=== PATIENT | female | born 1985 | race Caucasian/White ===

== ENCOUNTER 2019-05-16 17:50 | Emergency (ER) | payer SELFPAY ==
[2019-05-16 17:51] VITALS: BP 122/76; PULSE 83; RESP 16; TEMP 36.9; O2SAT 99; BMI 26.9
--- NOTE | 2019-05-16 17:55 | RAD_ITS ---
STUDY: X-RAY - LEFT KNEE REASON FOR EXAM: Female, 34 years old. Left knee swelling TECHNIQUE: 4 view(s) of the knee. COMPARISON: None. FINDINGS: Normal visualized distal femur. Normal visualized proximal tibia and fibula. Normal proximal tibiofibular articulation. Normal medial femorotibial compartment. Normal lateral femorotibial compartment. Normal patellofemoral articulation. The soft tissue structures are unremarkable. RAD/Knee 4 or More Views IMPRESSION: Normal x-ray examination of the knee. Electronically Signed: Abhilash Gardner DO at 18:18 EST Tel , Service support ,
--- NOTE | 2019-05-16 19:06 | ED.VISSUMM ---
- ER Visit Summary Date of Service: 05/16/19 Chief Complaint: Left knee swelling History of Present Illness: The patient is a 34 F with gradual onset left knee swelling. She never had this before. Nothing seemed to provoke it. Denies pain. Occasionally it pops. No redness, warmth, drainage, wounds. No weakness or numbness. No blood thinners. No other associated symptoms. Physical Examination: Inspection shows mild swelling. No redness. No warmth on palpation. Range of motion intact. No laxity or deformity. She does have crepitus when I palpate her patella. Extension is intact. Test Results: X-rays negative Emergency Department Course and Treatment: X-rays were negative. Patient declined pain medicine. Rest, ice, elevate. There is nothing to suggest septic knee, crystal arthropathy, ligamentous injury. Treatment Plan: Rest, ice, elevate. Lane wrap's. Fwdp-xmx-thyiegy remedies. Return for any new or worsening issues. Disposition: Discharge Impression: 1. Left knee effusion This note was generated with [employer] dictation software. It may contain incorrect words, spelling, and punctuation that were not noted in review of the chart prior to signing ED Disposition - Plan for ED Patient: Referrals: Care Physician,No Primary [Primary Care Provider] -
--- NOTE | 2019-05-16 19:08 | ED.DEP ---
ED Disposition - Plan for ED Patient: Instructions: Knee Effusion Referrals: Ne Storey [NON-STAFF] -
[2019-05-16 19:50] VITALS: BP 115/62; PULSE 68; RESP 16; O2SAT 98
== END 2019-05-16 19:52 | disposition home or self-care (01) ==
PROVIDERS: Emergency Provider Emergency Medicine
DX: M25.462 Effusion, left knee (principal)
CPT/HCPCS: 73564; 99282

== ENCOUNTER 2019-05-25 12:36 | Emergency (ER) | payer SELFPAY ==
[2019-05-25 12:38] VITALS: BP 114/72; PULSE 132; RESP 18; TEMP 36.6; O2SAT 99; BMI 26.7
[2019-05-25 12:51] VITALS: BP 116/76; PULSE 105; RESP 16; O2SAT 95
--- NOTE | 2019-05-25 13:05 | RAD_ITS ---
STUDY: X-RAY CHEST REASON FOR EXAM: Female, 34 years old. Chest pain, nausea TECHNIQUE: Single AP portable view of the chest. COMPARISON: None. FINDINGS: The lungs are clear and expanded. There is no demonstrated pleural abnormality. Normal size heart. Normal mediastinum and vince. Normal visualized pulmonary arteries. Normal visualized aortic arch and descending thoracic aorta. Normal visualized thoracic spine. Normal visualized ribs, clavicles, and shoulders. There is no demonstrated abnormality of the visualized soft tissue structures of the upper abdomen. RAD/Chest 1 View (Portable) IMPRESSION: Normal x-ray examination of the chest. Electronically Signed: Linwood Chao MD at 13:29 EST Tel , Service support ,
--- NOTE | 2019-05-25 13:05 | EKG12_ITS ---
Test Reason : CP Blood Pressure : / mmHG Vent. Rate : 099 BPM Atrial Rate : 099 BPM P-R Int : 134 ms QRS Dur : 086 ms QT Int : 332 ms P-R-T Axes : 068 064 -01 degrees QTc Int : 426 ms Normal sinus rhythm Possible Left atrial enlargement ST & T wave abnormality, consider inferior ischemia Abnormal ECG Confirmed by RENAE DODSON, MALGORZATA ([id number]), editorial director JAIME CHAVEZ ([id number]) on 05/29/2019 9:50:29 AM Referred By: LYNDSAY Confirmed By:TIFFANY MACDONALD MD
--- NOTE | 2019-05-25 13:07 | CT_ITS ---
STUDY: CT ABDOMEN AND PELVIS WITHOUT CONTRAST REASON FOR EXAM: Female, 34 years old. PT STATED N/V X 1 DAY, HX OF GB REMOVED, CSECTION RADIATION DOSAGE (If Supplied By Facility): CTDIvol = ( 9.68 ) mGy, DLP = ( 496.86 ) mGycm TECHNIQUE: Transaxial images were obtained from the dome of the diaphragm to the symphysis pubis without oral contrast, and without intravenous contrast. Sagittal and coronal images were reconstructed. Individualized dose optimization techniques were used for this CT. COMPARISON: None. FINDINGS: The visualized lung bases are unremarkable. Normal liver. No intrahepatic biliary duct dilatation or liver mass. There are surgical clips in the gallbladder fossa consistent with a prior cholecystectomy. Normal spleen. Normal pancreas. Normal bilateral adrenal glands. Normal right kidney. Normal left kidney. No hydronephrosis or renal masses. No visualized radiopaque stones. Normal visualized stomach. Normal small intestine. Normal colon. No bowel dilatation or obstruction. No free air or free fluid. The appendix is visualized and appears normal. Normal abdominal aorta. Normal inferior vena cava. Normal retroperitoneum. Normal urinary bladder. Normal visualized uterus. Normal abdominal wall. Normal osseous structures. CT/Abdomen/Pelvis without Cont IMPRESSION: No demonstrated acute or significant process of the abdomen and pelvis. Electronically Signed: Tyler Miller MD at 14:40 EST , Service support ,
--- NOTE | 2019-05-25 13:09 | ED.DCSUM_ITS ---
History of Present Illness Chief Complaint: Nausea/Vomiting Informant: Patient Onset: Yesterday Current Severity: Mild Narrative: Complains of diffuse stomach cramping associate with vomiting that began yesterday late in the evening after work, she indicates she did start her menstrual cycle at about the same time her cycles are on time she is status post tubal ligation, she takes her hand and drowsiness [place] around her entire abdomen indicating location of pain, she indicates status post cholecystectomy years ago no history of any GI elements, family members have URI symptoms, she is had some loose stools, she has no history of inflammatory bowel disease or other GI ailments Past Medical History - Allergies and Home Meds Allergies/Adverse Reactions: Allergies No Known Allergies Allergy (Verified 05/25/19 12:40) Primary Care Physician: Care Physician,No Primary [Primary Care Provider] - Past Medical History: - - Cholecystectomy Smoking Status: Former smoker Review of Systems General: Denies: Chills, Fever, Sweats Eyes: Denies: Visual changes - bilaterally, Diplopia ENT: Denies: Rhinorrhea, Sore throat Cardiovascular: Denies: Chest pain, Palpitations Respiratory: Denies: Dyspnea, Cough, Dyspnea on exertion Gastrointestinal: Reports: Abdominal pain, Vomiting, Diarrhea. Denies: Nausea, Melena, Hematochezia Genitourinary: Denies: Dysuria, Hematuria, Frequency Musculoskeletal: Denies: Back pain, Extremity Pain Skin: Denies: Rash, Wounds Neurological: Denies: Headache, Weakness, Numbness Physical Exam Vital Signs/Narrative: Vital Signs Temp Pulse Resp BP Pulse Ox 05/25/19 12:51 105 H 16 116/76 95 05/25/19 12:38 98 F 132 H 18 114/72 99 General: Well nourished, Well developed, No Acute Distress Head: Normocephalic, Atraumatic Eyes: Perrl, EOMI ENT: Moist mucous membranes, No rhinorrhea Neck: Supple, Nontender Cardiovascular: Regular rate, Regular rhythm, No murmurs Respiratory: No distress, CTA bilaterally, Chest nontender Abdomen: Soft, Nontender, Nondistended, Normal bowel sounds, - - She has a relatively soft abdomen she it is not distended by her history she has a vague diffuse discomfort most of it appeared to be to the left lower abdomen no rebound guarding organomegaly Back: Nontender, Normal Inspection Extremities: Nontender, No edema Skin: Normal color, No rash Neurological: Alert, Oriented x3, Cranial nerves II-XII grossly intact, Normal Strength, Normal Sensation Psychological: Normal affect, Normal Mood Diagnostic/Tx/Re-eval - Medical Decision Making Given all of the above IV fluid screening labs UA CT Screening work-up and labs UA CBC chemistry hCG negative, CT abdomen pelvis unremarkable, on reevaluation she is drinking water she is feeling much better explained to the exact etiology of the symptoms are unclear at this time she feels well wants to go home and she will follow with outpatient providers return for change in symptoms Home stable Final impression Crampy abdominal pain resolved etiology unclear ED Disposition - Plan for ED Patient: Diagnosis: Abdominal pain Instructions: VOMITING AND DIARRHEA, Nonspecific (Adult) Referrals: Care Physician,No Primary [Primary Care Provider] -
[2019-05-25 13:15] LABS: Absolute Lymphocyte Count 0.39 X10^3/uL (0.83-4.51); Absolute Neutrophil Count 5.6 X10^3/uL (2.0-7.7); Basophil# 0.01 X10^3/uL; Basophil% 0.2 % (0-1); Eosinophils% 1.6 % (0-5); Hematocrit 36.2 % (37-47); Hemoglobin 11.9 g/dL (12.0-15.0); Lymphocyte # 0.39 X10^3/ul (4.0); Lymphocyte % 6.1 % (19-41); Mean Corp Hgb Conc 32.9 g/dL (32-36); Mean Corpuscular Hgb 28.3 pg (27.0-32.0); Mean Corpuscular Volume 86.2 fL (81-99); Mean Platelet Vol. 9.6 fl (6.2-12.0); Monocyte# 0.28 X10^3/uL; Monocyte% 4.4 % (0-10); NRBC Flagged by Analyzer 0 % (0-5); Neutrophil # 5.56 X10^3/uL (2.7-7.7); Neutrophil % 87.2 % (47-70); POSITIVE DIFFERENTIAL YES; POSITIVE MORPHOLOGY YES; Platelet Count 238 K/mm3 (150-450); RBC Distribution Width CV 12.6 % (11.6-14.6); RBC Distribution Width SD 39.4 fl (35.1-43.9); White Blood Count 6.4 K/mm3 (4.4-11.0)
--- NOTE | 2019-05-25 13:23 | NURSING ---
NO OLD EKGS
[2019-05-25 13:24] LABS: Internal QC Validated? YES +Cl - CLEAR BKGD; Pregnancy, Serum, hCG Quali. NEGATIVE Negative
[2019-05-25 13:27] LABS: Differential Indicated SCAN CRITERIA MET
[2019-05-25 13:33] LABS: AST(SGOT) 10 U/L (15-37); Alanine Aminotransfer ALT/SGPT 15 U/L (13-56); Albumin, Serum 3.7 g/dL (3.2-5.0); Alkaline Phosphatase 41 U/L (45-117); Anion Gap 6 (5-15); BUN 10 mg/dL (7-18); BUN/Creat Ratio 12.6 RATIO (10-20); Calcium,Total 8.6 mg/dL (8.5-10.1); Chloride 109 mmol/L (98-107); Creatinine, Serum 0.79 mg/dL (0.55-1.02); EST Glomerular Filtration Rate 89 mL/min (>60); Est Glom Filt Rate - Afr Amer 107 mL/min (>60); Globulin 3.3 g/dL (2.2-4.2); Glucose 108 mg/dL (74-106); Lipase 62 U/L (73-393); Potassium 3.4 mmol/L (3.5-5.1); Sodium Level 138 mmol/L (136-145)
[2019-05-25] MEDS: Aspirin 81 MG TAB.CHEW 324 MG PO (13:34)
[2019-05-25] MEDS: 0.9% Normal Saline 1,000 ML 1000 ML IV (13:35)
[2019-05-25] MEDS: morphine 8 MG/ML Syringe IV (13:35)
[2019-05-25] MEDS: Ondansetron 4 MG/2 ML Vial IV (13:35)
--- NOTE | 2019-05-25 14:27 | ED.RN ---
PT UP TO BR. STATES I MISSED. BACK TO BED AND HOOKED BACK UP TO MONITOR
[2019-05-25 14:37] VITALS: BP 102/54; PULSE 97; RESP 16; O2SAT 98
[2019-05-25 15:16] LABS: Mucous, Urine 0 SEEN /hpf (<or=2+)
[2019-05-25 15:19] LABS: Color, Urine Yellow (Yellow); Glucose, Dipstick Normal (Normal); Ketone-Dipstick 15 mg/dl (Negative); Leukocyte Esterase-Dipstick 25 /ul (Negative); Nitrite-Dipstick Negative (Negative); Occult Blood-Urine 250 /ul (Negative); Protein-Dipstick Negative (Negative); Urine Bilirubin Dipstick Negative (Negative); Urine Clarity Sl. Cloudy (Clear); Urine Urobilinogen 1 mg/dl (Normal)
[2019-05-25 15:35] LABS: Bacteria 1+ /hpf (None Seen); Red Blood Cells-Urine 50-100 SEEN /hpf (0-5); Squamous Epithelial Cells - UA 0-5 SEEN /hpf (5-10); White Blood Cells 0-5 SEEN /hpf (0-5)
[2019-05-25 16:00] VITALS: BP 98/65; PULSE 89; RESP 16; O2SAT 98
[2019-05-25 16:56] VITALS: BP 98/65; PULSE 104; RESP 21; O2SAT 95
== END 2019-05-25 16:58 | disposition home or self-care (01) ==
LOC: ED 13:18
PROVIDERS: Emergency Provider Emergency Medicine
DX: R10.9 Unspecified abdominal pain (principal); R11.2 Nausea with vomiting, unspecified; Z87.891 Personal history of nicotine dependence; Z98.51 Tubal ligation status; Z90.49 Acquired absence of other specified parts of digestive tract
CPT/HCPCS: 71045; 74176; 80048; 80076; 81001; 83690; 84484; 84703; 85025; 93005; 96361; 96374; 96375; 99285; J7030; A4216; J2405

== ENCOUNTER 2019-09-21 21:01 | Emergency (ER) | payer OTHER, SELFPAY ==
[2019-09-21 21:02] VITALS: BP 114/73; PULSE 60; RESP 14; TEMP 37; O2SAT 100; BMI 29.0
--- NOTE | 2019-09-21 21:55 | ED.VISSUMM ---
- ER Visit Summary Date of Service: 09/21/19 Chief Complaint: Dog bite History of Present Illness: The patient is a 34 F who presents with a dog bite to her left foot that occurred today. Patient states she was bitten by her own dog. Patient states she was playing with her dog when she fell backwards. Patient states that the dog bit her on her left foot after she fell backwards. Patient states her last tetanus was within 10 years. Patient denies any paresthesias or weakness. Patient describes her pain as throbbing. Patient states the dog's immunizations are up-to-date. Physical Examination: Vital signs are stable. Patient is afebrile. Patient is in no acute distress. Skin is warm and dry. There are 2 puncture wounds over the dorsal aspect of the left foot with ecchymosis in the area over the third and fourth metatarsals. There are also puncture wounds on the distal phalanx of the great toe. There is full range of motion. Sensation was intact light touch in all digits. Capillary refill was less than 2 seconds in all digits. Pedal pulses are equal bilaterally. Test Results: X-rays of the left foot were obtained. There is no acute fracture. This was interpreted by the radiologist and reviewed by myself Emergency Department Course and Treatment: The wound was cleaned and dressed with bacitracin dressing. Patient was instructed to keep the wound clean and dry. Patient was given a prescription for Augmentin. Patient was instructed to follow-up with her primary care physician in 5 to 7 days. Patient understood and was agreeable with the plan. All questions were answered. Disposition: Discharge home Impression: Dog bite left foot This note was generated with [employer] dictation software. It may contain incorrect words, spelling, and punctuation that were not noted in review of the chart prior to signing ED Disposition - Plan for ED Patient: Disposition: Home or Assisted Living Diagnosis: Dog bite of left foot Instructions: ED BITE Dog Prescriptions: Amox/Clavulanate Tablet [Augmentin Tablet] 875 mg PO Q12H #20 tab Prescription Printed Referrals: NOT,DEFINED [NON-STAFF] - 5-7 Days
[2019-09-21] MEDS: Amox/Clavulanate 875 MG Tablet PO (22:07)
--- NOTE | 2019-09-21 22:08 | RAD_ITS ---
STUDY: X-RAY - LEFT FOOT CLINICAL: Female, 34 years old. dog bite to foot TECHNIQUE: 3 view(s) of the foot. COMPARISON: None. FINDINGS: Normal talus, calcaneus, and tarsal bones. Normal visualized subtalar, talonavicular, calcaneocuboid, tarsal and tarsometatarsal articulations. Normal metatarsi. Normal metatarsophalangeal joint of the great toe. Normal tibial and fibular sesamoid bones. Normal interphalangeal joint of the great toe. Normal phalanges of the great toe. Normal second through fifth metatarsophalangeal joints. Normal interphalangeal joints and phalanges of the lesser toes. The soft tissue structures are unremarkable. RAD/Foot min 3 Views IMPRESSION: Normal x-ray examination of the foot. Electronically Signed: Paulo Lopez MD at 22:20 EDT , Service support ,
== END 2019-09-21 22:58 | disposition home or self-care (01) ==
LOC: ED 22:20
PROVIDERS: Emergency Provider Emergency Medicine
DX: S91.332A Puncture wound without foreign body, left foot, initial encounter (principal); W54.0XXA Bitten by dog, initial encounter; Y93.89 Activity, other specified; Y99.9 Unspecified external cause status; F17.290 Nicotine dependence, other tobacco product, uncomplicated
CPT/HCPCS: 73630; 99283

== ENCOUNTER 2023-03-27 07:18 | Emergency (ER) | payer SELFPAY ==
[2023-03-27 07:19] VITALS: BP 134/78; PULSE 64; RESP 14; TEMP 36.4; O2SAT 98; BMI 31.4
--- NOTE | 2023-03-27 07:36 | ED.VIS.LOWEX ---
HPI History of Present Illness Chief Complaint: Lower Extremity Injury Narrative Narrative: 37-year-old female who denies significant past medical history presents with pain in her right forefoot that she has had for approximately 2 weeks. She relates history that she noticed some bruising on the top of her right foot but cannot recall any significant trauma. She states may be she had an animal stepped on the top of her foot. Subsequently, she was at a wedding and was dancing, and noticed pain in her right foot and a mild amount of swelling so she elevated her feet. Over the last 1 to 2 days, she was walking and felt a pop in her forefoot and now noticed swelling on the top/dorsum of her right foot. Pain is worse with weightbearing and relieved by nothing. She states that the pain is bearable however, but she has had this problem with swelling and mild pain for approximately 2 weeks. She denies any other symptoms. No significant past medical history. PFSH PFSH Home Medications NK 05/16/19 [History Last Taken Unknown] amoxicillin 875 mg-potassium clavulanate 125 mg tablet 875 mg (0.875 x 875-125 mg) PO Q12H #20 tabs 09/21/19 [Rx Last Taken Unknown] Allergy/AdvReac Type Severity Reaction Status Date / Time No Known Allergies Allergy Verified 03/27/23 07:19 Social History Smoking Status: Current every day smoker ROS ROS ED ROS Narrative Constitutional: No fever, no chills. HEENT: No sore throat. No neck pain. No loss of vision. No rhinorrhea. Cardiovascular: No chest pain. No palpitations. No pedal edema. Respiratory: No cough, no shortness of breath. Abdominal: No abdominal pain. No nausea. No vomiting. Genitourinary: No dysuria. No hematuria. Musculoskeletal: No myalgias. Right foot pain, more forefoot, positive swelling on dorsum of right foot, localized Neurologic: No headaches. No dizziness. No lightheadedness. Skin: No rash. No change in color. Psychiatric: No depression. No anxiety. EXAM Physical Exam Narrative Exam Narrative: Afebrile. Vital signs noted. HEENT: Normocephalic. Atraumatic. PERRL, EOMI. Neck soft and supple. No point tenderness or step off. Cardiovascular: Regular rate and rhythm. No murmurs, rubs, or gallops appreciated. Respiratory: No tachypnea. Lungs clear to auscultation bilaterally. Gastrointestinal: Abdomen soft, nontender, with normoactive bowel sounds. No rebound or guarding. Neurological: Awake. Alert. Nonfocal, nonlateralizing. Skin: No rash. Normal color. No pallor. Musculoskeletal: No pedal edema. Full range of motion extremities. Patient of the right foot does show palpable dorsalis pedis pulse. There is mild localized swelling over the metatarsals #2, 3, and 4 mainly. She has good capillary refill. No malleoli or tenderness. No plantar fascia tenderness. No podagra. Const Vital Signs: 03/27/23 07:19 Temperature 97.6 F L Temperature Source Temporal Pulse Rate 64 Respiratory Rate 14 Blood Pressure 134/78 H Blood Pressure Mean 96 Pulse Ox 98 Oxygen Delivery Method Room Air MDM MDM MDM Narrative Medical decision making narrative: In the differential diagnosis is foot sprain versus fracture. I have low suspicion for gout as it is not localized to the first MTP, and additionally she does not have whole foot swelling. Seems to be more localized. She declined analgesics here in the emergency department. X-rays were obtained of the right foot in 3 views and interpreted by myself independently. On my independent interpretation, there is no evidence of acute fracture. I reviewed the radiology report which confirms my independent interpretation and does mention soft tissue swelling which I feel is localized. At this point in time, she will be placed in a postoperative shoe, and she was referred to podiatry. I do not feel that she requires narcotic pain medications or observation at this time. Return instructions to the emergency department were reviewed. Disposition is discharged home in stable condition. Radiography Diagnostic Testing: Clinical Impression(s) from Imaging Studies Foot X-Ray 03/27/23 07:38 IMPRESSION: Mild soft tissue swelling. Electronically Signed: Pawan St MD at 8:08 EDT , Discharge Plan Triage Chief Complaint: Lower Extremity Injury ED Provider: Mario Alberto Florez Dx/Rx/DC Orders Clinical Impression: Localized swelling of right foot, Right foot sprain Instructions: ED Foot Sprain Prescriptions: No Action NK amoxicillin-pot clavulanate 875 MG tablet 875 mg PO Q12H Qty: 20 0RF Primary Care Provider: Care Physician,No Primary Referrals: Paulo Summers DPM [Med Staff - Active Staff] - 1 Week if not improving Care Physician,No Primary [Primary Care Provider] - Activity Restrictions/Additional Instructions: Take [id number] medications such as ibuprofen or Tylenol for pain. Elevate your foot when possible. Wear your postoperative shoe when walking. Follow-up with podiatry. Disposition Disposition: Home, Self Care
--- NOTE | 2023-03-27 07:38 | RAD_ITS ---
STUDY: X-RAY - RIGHT FOOT CLINICAL: Female, 37 years old. Pain at the base of the toes. TECHNIQUE: 3 view(s) of the foot. COMPARISON: None. FINDINGS: Tiny plantar spur. Normal visualized subtalar, talonavicular, calcaneocuboid, tarsal and tarsometatarsal articulations. Normal metatarsi. Normal metatarsophalangeal joint of the great toe. Normal tibial and fibular sesamoid bones. Normal interphalangeal joint of the great toe. Normal phalanges of the great toe. Normal second through fifth metatarsophalangeal joints. Normal interphalangeal joints and phalanges of the lesser toes. Mild soft tissue swelling. RAD/Foot min 3 Views IMPRESSION: Mild soft tissue swelling. Electronically Signed: Pawan St MD at 8:08 EDT ,
--- NOTE | 2023-03-27 08:21 | ED.RN ---
Verbalized understanding of instructions. Walking shoe applied. Ambulatory from dept.
== END 2023-03-27 08:22 | disposition home or self-care (01) ==
PROVIDERS: Emergency Provider Emergency Medicine; Visit Provider Emergency Medicine
DX: S93.601A Unspecified sprain of right foot, initial encounter (principal); M79.89 Other specified soft tissue disorders; F17.200 Nicotine dependence, unspecified, uncomplicated; X58.XXXA Exposure to other specified factors, initial encounter
CPT/HCPCS: 73630; 99281; 99282

== ENCOUNTER → 2025-01-05 | Outpatient (CLI) | payer OTHER, SELFPAY ==
[2025-01-05 12:14] LABS: Hematocrit 37.5 % (37-47); Hemoglobin 12.1 g/dL (12.0-15.0); Immature Granulocytes Count 0.020 X10^3/uL (0.0-0.0); Mean Corp Hgb Conc 32.3 g/dL (32-36); Mean Corpuscular Volume 80.8 fL (81-99); Mean Platelet Vol. 9.7 fl (6.2-12.0); NRBC Flagged by Analyzer 0 % (0-5); Platelet Count 343 K/mm3 (150-450); RBC Distribution Width CV 14.6 % (11.6-14.6); RBC Distribution Width SD 42.8 fl (35.1-43.9); Red Blood Count 4.64 M/mm3 (4.2-5.4); White Blood Count 5.8 K/mm3 (4.4-11.0)
[2025-01-05 13:19] LABS: AST(SGOT) 19 U/L (<=31); Alanine Aminotransfer ALT/SGPT 16 U/L (<=34); Albumin, Serum 4.3 g/dL (3.5-5.0); Alkaline Phosphatase 48 U/L (35-104); Anion Gap 13 (5-15); BUN 13 mg/dL (4-19); BUN/Creat Ratio 13.6 RATIO (10-20); CORTISOL AM 9.36 ug/dL (6.02-18.40); Calcium,Total 9.4 mg/dL (7.6-11.0); Carbon Dioxide 20.4 mmol/L (21.0-32.0); Chloride 107 mmol/L (98-108); Free T3 3.3 pg/mL (2.18-3.98); Globulin 2.9 g/dL (2.2-4.2); Glucose 90 mg/dL (70-99); Magnesium 2.2 mg/dL (1.5-2.2); Potassium 4.0 mmol/L (3.3-5.1); Vitamin B12 459 pg/mL (180-914); Vitamin D,25 Hydroxy 33.3 ng/mL (30-100)
[2025-01-08 16:08] LABS: Thyroid Stim Immunoglob <0.10 IU/L (0.00-0.55)
== END | disposition home or self-care (01) ==
LOC: VSLAB 09:53
PROVIDERS: PCP Family Medicine; Visit Provider Family Medicine
DX: E04.9 Nontoxic goiter, unspecified (principal); R53.83 Other fatigue
CPT/HCPCS: 36415; 80053; 82306; 82533; 82607; 83036; 83735; 84439; 84443; 84445; 84481; 85025; 86376; 86800

== ENCOUNTER → 2025-01-13 | Outpatient (CLI) | payer OTHER, SELFPAY ==
--- NOTE | 2025-01-13 11:31 | US_ITS ---
PROCEDURE: THYROID 01/13/2025 REASON FOR EXAM: History of thyroid goiter. TECHNIQUE: THYROID COMPARISON: None FINDINGS: Right thyroid lobe size: 5.1 cm x 2.5 cm x 2.1 cm Left thyroid lobe size: 5.1 cm 1.7 cm 1.4 cm Isthmus: 0.3 cm Background parenchymal echotexture is homogeneous. Nodules: . Lobe: Right, Location: Midpole, Size: 2.6 cm 2.7 cm 1.7 cm, Stability: N/A Composition: Mixed cystic and solid (+1) Echogenicity: Hypoechoic (+2) Margin: Smooth (+0) Shape: Wider than tall (+0) Echogenic Foci: None (+0) TI-RADS: 3 . Lobe: Left, Location: Mid and inferior poles., 3 mm x 4 mm x 3 mm cystic nodule in the midpole with low-level echoes within it. 5 mm x 4 mm x 3 mm hypoechoic solid nodule in the midpole. There is a 7 mm x 6 mm x 3 mm hypoechoic nodule in the inferior pole. TI-RADS: 2 US/Thyroid IMPRESSION: Dominant complex nodule in the right lobe of the thyroid as described. Biopsy recommended. RECOMMENDATION: Based on most suspicious nodule. Nodule size = largest diameter Only evaluate nodule if =>5 mm. Growth > 20% in 2 dimensions = worsening. Follow up to 4 nodules. Recommend biopsy for no more than 2 nodules. Reading Location: [facility]
== END | disposition home or self-care (01) ==
LOC: US 11:28
PROVIDERS: PCP Family Medicine; Referring Provider Family Medicine; Visit Provider Family Medicine
DX: E04.9 Nontoxic goiter, unspecified (principal)
CPT/HCPCS: 76536

== ENCOUNTER → 2025-03-01 | Outpatient (CLI) | payer OTHER, SELFPAY ==
--- NOTE | 2025-03-01 08:15 | CYSPIN_PTH ---
PATIENT: SILVESTRE SPRINGER LOC: [facility] U#:[id number] AGE/SX: 39/F ROOM: RE03/01/[address]: Dr. Chato Li MD : [id number] BED: DIS: 03/01/2025 SPEC #: [id number] RECD: 03/01/25 10:49 STATUS: DANIELA REFrancisca #: [id number] JOVITA: 03/01/25 08:[address]: Chato Li DEPT: CYTOLOGY RECD BY: Jluis Clayton ENTERED: 03/01/25 11:07 SP TYPE: CYSPIN FL OTHR DR: Janie Marte, [facility], DO Tissues: A - Thyroid gland, NOS Procedures: Pap Stain (control) Special Stain Group II Diff Quik Stain (control) Cytospin Fluid Cytology Other HEADER OPERATION: Fine needle aspiration of right thyroid nodule PRE-OP DIAGNOSIS: Right thyroid nodule TISSUE SUBMITTED: A- Right thyroid nodule DIAGNOSIS CYTOLOGY A. Right thyroid nodule, FNA (cytospin, smear x4): - Atypical cells of undetermined significance (TBS III). - see Comment COMMENT Per recommendations and a clinician-approved plan, genomic testing (Afirma) has been submitted. Results will be reported in an addendum and faxed to the clinician. CYTOLOGY STUDY Slides are reviewed. CYTOLOGY GROSS A. Received is 35 ml of pink-cloudy cytolyt with particles and 4 smears labeled with the patient's name and and designated per the requisition as Right thyroid nodule. Submitted for cytology and cytospin. 03/01/2025 CPT:58803 ADDENDUM ADDENDUM ADDENDUM ADDENDUM ADDENDUM ADDENDUM ADDENDUM ADDENDUM ADDENDUM ADDENDUM 04/04/2025 14:32 ADDENDUM 04/04/2025 14:32 ADDENDUM 04/04/2025 14:32 ADDENDUM 04/04/2025 14:32 ADDENDUM 04/04/2025 14:32 AFIRMA RESULTS REPORT RESULTS INTERPRETATION: The result of this 2.7 cm Addison III nodule A is Afirma GSC benign, which suggests a low risk of cancer of approximately 4%. Treatment like a cytologically benign nodule may be appropriate, including clinical correlation. Afirma XA is not performed [place] [facility] Benign nodules. TERT promoter region analysis is not performed on [facility] Benign nodules. Please see complete report in e-chart or EMR
== END | disposition home or self-care (01) ==
LOC: LABSPEC 10:50
PROVIDERS: PCP Family Medicine; Referring Provider Surgery; Visit Provider Surgery
DX: E04.1 Nontoxic single thyroid nodule (principal)
CPT/HCPCS: 88108; 88161; 88313